=== PATIENT | male | born 1945 | race Caucasian/White ===

== ENCOUNTER 2021-08-30 01:03 | Day surgery (SDC) | payer MEDICARE, OTHER, SELFPAY ==
[2021-08-14 14:51] VITALS: BMI 34.9
[2021-08-30 10:17] VITALS: BP 175/75; PULSE 102; RESP 16; TEMP 37; O2SAT 96; BMI 33.1
[2021-08-30] MEDS: LACTATED RINGERS 1,000 ML 150 ML IV CONT (10:25)
--- NOTE | 2021-08-30 10:58 | WPDGICN ---
Assessment and Plan Assessment and plan (1) Positive colorectal cancer screening using Cologuard test: Code(s): R19.5 - Other fecal abnormalities Status: Acute Assessment and Plan: Patient presents for screening colonoscopy because of positive screening Cologuard test. Further recommendations will be given after endoscopy. GI Consult Note Consult date/time: 08/30/21 10:58 Reason for consult: Positive Cologuard test HPI: Gopal Hargrove is a 75 year old male presents for screening colonoscopy because of positive Cologuard test. Patient reports his current weight appetite bowel movements are normal. Patient denies abdominal pain. He has had no bleeding. Family history is noncontributory. Review of Systems Review of Systems: Review of systems noncontributory. [facility] Past Medical History Medical History (Updated 08/30/21 @ 10:59 by Santi Hallman MD) Hyperlipidemia Social History Social History Smoking status: Former smoker Alcohol intake: current Drinks per week: 21 Substance use: never Living arrangements: with family Spiritual care concerns: No Meds Home Medications and Allergies Home Medications Medication Instructions Recorded Confirmed Type hydrochlorothiazide 25 mg tablet 25 mg PO DAILY #90 tabs 10/20/20 08/30/21 Rx doxazosin 4 mg tablet See Rx Instructions .Route 12/09/20 08/30/21 Rx .COMPLEX #90 tabs atorvastatin 20 mg tablet 20 mg PO DAILY #90 tabs 12/14/20 08/30/21 Rx lisinopril 10 mg tablet 10 mg PO DAILY #90 tabs 12/21/20 08/30/21 Rx amlodipine 10 mg tablet See Rx Instructions .Route 08/04/21 08/30/21 Rx .COMPLEX #90 tabs Allergies Allergy/AdvReac Type Severity Reaction Status Date / Time Penicillins Allergy Mild rash Verified 08/30/21 10:16 Vital Signs Vital Signs - 24 hr 08/30/21 10:17 Temperature 98.6 F Pulse Rate 102 H Respiratory Rate 16 Blood Pressure 175/75 H Pulse Oximetry 96 Oxygen Delivery Room Air Exam Narrative: Physical exam reveals patient to be alert. Vital signs stable. HEENT exam is unremarkable. Patient is anicteric. Lungs are clear to auscultation and percussion. Heart is without murmur or extra sounds. Abdominal exam bowel sounds are present soft nontender with no organomegaly. Digital external rectal exam is normal.
--- NOTE | 2021-08-30 11:01 | P.PNAN_ITS ---
Anes - Initial Pre Proc Eval Procedure: Operation Date: 08/30/21 11:30 Proposed Procedures p Colonoscopy - Santi Hallman MD Date/Time: 08/30/21 11:01 Surgeon: Santi Hallman MD Pre Op Diagnosis: positive cologuard Patient Data Age: 75 Gender: M Height: 1.8 m Weight: 107.7 kg Last Vital Signs Temp 98.6 F 08/30/21 10:17 Pulse 102 H 08/30/21 10:17 Resp 16 08/30/21 10:17 BP 175/75 H 08/30/21 10:17 Pulse Ox 96 08/30/21 10:17 O2 Del Method Room Air 08/30/21 10:17 Allergies Allergy/AdvReac Type Severity Reaction Status Date / Time Penicillins Allergy Mild rash Verified 08/30/21 10:16 Home Medications Medication Instructions Recorded Confirmed Type hydrochlorothiazide 25 mg tablet 25 mg PO DAILY #90 tabs 10/20/20 08/30/21 Rx doxazosin 4 mg tablet See Rx Instructions .Route 12/09/20 08/30/21 Rx .COMPLEX #90 tabs atorvastatin 20 mg tablet 20 mg PO DAILY #90 tabs 12/14/20 08/30/21 Rx lisinopril 10 mg tablet 10 mg PO DAILY #90 tabs 12/21/20 08/30/21 Rx amlodipine 10 mg tablet See Rx Instructions .Route 08/04/21 08/30/21 Rx .COMPLEX #90 tabs Patient hx anesthesia problems: none Family hx anesthesia problems: none Results Review: All pre-operative results and documents have been reviewed as part of the pre- operative evaluation. [facility] Past Medical History Medical History (Updated 08/30/21 @ 10:59 by Santi Hallman MD) Hyperlipidemia Social History Social History Smoking status: Former smoker Alcohol intake: current Drinks per week: 21 Substance use: never Living arrangements: with family Spiritual care concerns: No Anes - Eval Final PreProcedure Day of Procedure 08/30/21 11:01 Patient weight: obese Heart: regular rate and rhythm Lungs: clear to auscultation Airway: Mallampati scale class III Neurological: alert and oriented Last oral intake: >/= 8 hours ASA classification: III Emergent: no Anesthetic plan: proceed Anesthesia type and monitoring: general GIVS and standard monitoring Results Review: All pre-operative results and documents have been reviewed as part of the pre- operative evaluation. Informed Consent: The patient's anesthetic plan and its attendant risks and benefits were discussed with the patient/family/POA. Questions were solicited and answers provided to the satisfaction of the patient/family/POA.
[2021-08-30 11:49] VITALS: BP 115/56; PULSE 76; RESP 17; O2SAT 98
[2021-08-30] MEDS: SIMETHICONE ORAL SUSPENSION 20 MG/0.3 ML 30 ML BOTTLE 0.6 ML IRRIGATION (11:49)
[2021-08-30 11:59] VITALS: BP 125/69; PULSE 77; RESP 20; O2SAT 95
[2021-08-30 12:09] VITALS: BP 144/68; PULSE 77; RESP 16; O2SAT 96
== END 2021-08-30 12:29 | disposition home or self-care (01) ==
PROVIDERS: PCP Internal Medicine; Visit Provider Internal Medicine Gastroenterology
PROC: 0DJD8ZZ Inspection of Lower Intestinal Tract, Via Natural or Artificial Opening Endoscopic (ICD-10-PCS; CPT 45378; principal; 2021-08-30 11:30)
DX: R19.5 Other fecal abnormalities (principal); D12.5 Benign neoplasm of sigmoid colon; D12.0 Benign neoplasm of cecum; K57.30 Diverticulosis of large intestine without perforation or abscess without bleeding; K64.8 Other hemorrhoids; E78.5 Hyperlipidemia, unspecified; Z87.891 Personal history of nicotine dependence; E66.9 Obesity, unspecified; Z68.33 Body mass index [BMI] 33.0-33.9, adult
CPT/HCPCS: 45385; 88305; J2001; J2704; J7120

== ENCOUNTER 2022-07-20 08:22 | Outpatient (CLI) | payer MEDICARE, OTHER, SELFPAY ==
[2022-07-20 14:10] LABS: Alanine Aminotransferase 26 U/L (6-50); Albumin Level 4.4 g/dL (3.5-5.1); Alkaline Phosphatase 103 U/L (38-126); Anion Gap 8 mmol/L (8-16); Aspartate Amino Transferase 42 U/L (17-59); Bilirubin,Total 0.8 mg/dL (0.2-1.3); Blood Urea Nitrogen 11 mg/dL (9-20); Calcium 9.1 mg/dL (8.4-10.2); Carbon Dioxide 27 mmol/L (22-30); Chloride 99 mmol/L (98-107); Cholesterol 150 mg/dL (0-200); Estimated Glomerular Filt Rate > 60; Glucose 114 mg/dL (65-110); HDL Direct 39 mg/dL; Potassium 3.7 mmol/L (3.4-5.0); Sodium 134 mmol/L (137-145); Triglycerides 148 mg/dL (<150)
[2022-07-20 14:26] LABS: LDL Cholesterol Direct 88 mg/dL
[2022-07-20 14:32] LABS: Prostate Specific Antigen 0.4 ng/mL (< OR = 4.0)
[2022-07-20 14:37] LABS: Hemoglobin A1C 6.2 % (<5.7)
== END 2022-07-20 08:23 | disposition home or self-care (01) ==
LOC: ANHGOSHLAB 08:26
PROVIDERS: PCP Family Medicine; Visit Provider Family Medicine
DX: E11.9 Type 2 diabetes mellitus without complications (principal); I10 Essential (primary) hypertension; Z13.220 Encounter for screening for lipoid disorders; Z13.228 Encounter for screening for other metabolic disorders; Z12.5 Encounter for screening for malignant neoplasm of prostate
CPT/HCPCS: 36415; 80053; 80061; 83036; 84153; G0103

== ENCOUNTER 2023-01-25 07:52 | Outpatient (CLI) | payer MEDICARE, OTHER, SELFPAY | END 2023-01-25 07:53 | disposition home or self-care (01) | PROVIDERS: PCP Family Medicine; Visit Provider Family Medicine | DX: H90.3 Sensorineural hearing loss, bilateral (principal) | CPT/HCPCS: 92557; 92567 ==

== ENCOUNTER 2023-03-11 09:30 | Outpatient (RCR) | payer MEDICARE, OTHER, SELFPAY | END 2023-05-08 23:59 | disposition home or self-care (01) | LOC: ANHAUDASC 09:30 | PROVIDERS: PCP Family Medicine; Visit Provider Family Medicine | DX: Z46.1 Encounter for fitting and adjustment of hearing aid (principal) | CPT/HCPCS: 99199; V5261; V5264 ==

== ENCOUNTER 2023-07-30 08:23 | Outpatient (CLI) | payer MEDICARE, SELFPAY ==
[2023-07-30 19:40] LABS: Alanine Aminotransferase 20 U/L (6-50); Albumin Level 4.3 g/dL (3.5-5.1); Alkaline Phosphatase 85 U/L (38-126); Anion Gap 7 mmol/L (4-12); Aspartate Amino Transferase 27 U/L (17-59); Bilirubin,Total 0.8 mg/dL (0.2-1.3); Blood Urea Nitrogen 12 mg/dL (9-20); Calcium 9.6 mg/dL (8.4-10.2); Carbon Dioxide 26 mmol/L (22-30); Chloride 104 mmol/L (98-107); Cholesterol 155 mg/dL (0-200); Estimated Glomerular Filt Rate > 60; Glucose 113 mg/dL (65-110); HDL Direct 42 mg/dL; Sodium 137 mmol/L (137-145); Triglycerides 168 mg/dL (<150)
[2023-07-30 19:51] LABS: LDL Cholesterol Direct 86 mg/dL
[2023-07-30 20:10] LABS: Prostate Specific Antigen 0.3 ng/mL (< OR = 4.0)
== END 2023-07-30 08:24 | disposition home or self-care (01) ==
LOC: ANHGOSHLAB 08:25
PROVIDERS: PCP Family Medicine; Visit Provider Family Medicine
DX: Z12.5 Encounter for screening for malignant neoplasm of prostate (principal); I10 Essential (primary) hypertension; E11.9 Type 2 diabetes mellitus without complications; Z13.220 Encounter for screening for lipoid disorders; Z13.228 Encounter for screening for other metabolic disorders
CPT/HCPCS: 36415; 80053; 80061; 83036; 84153; G0103

== ENCOUNTER 2024-04-16 13:01 | Outpatient (CLI) | payer MEDICARE, SELFPAY | END 2024-04-16 13:02 | disposition home or self-care (01) | LOC: ANHAUDASC 13:01 | PROVIDERS: PCP Internal Medicine; Visit Provider Family Medicine | DX: H90.3 Sensorineural hearing loss, bilateral (principal); H93.13 Tinnitus, bilateral | CPT/HCPCS: 92557; 92567 ==

== ENCOUNTER 2024-06-29 09:32 | Outpatient (CLI) | payer MEDICARE, SELFPAY ==
--- OUTSIDE RECORDS SUMMARY | 2024-06-29 10:23 | XMS_ITS | Continuity of Care Document ---
Author Organization [facility] [place] [address] [facility] [place] [address] Phone Care Team Providers Care Weight And Test Bar Clerk Name Role Phone [facility] Unavailable Unavail able Jaquelin Woods Unavailable Unavailable Advance Directives Directive Yes / No Effective Date File Name No Information Encounters Encounter Description Practice Location Reason(s) For Visit Diagnoses Date Provider Providers Copied on Encounter [facility], [address], [place], [place], [id number], [place] tel:[phone] [facility] No Information [phone] [facility]. [address], [place], [place], [id number] , [place]. tel:[phone] Referring Provider: Miko Westfall, Replaced by [facility] [facility] [address], [place], [address]. tel:[phone] garcia Provider: Jaquelin Woods, [address] [place] [address], [address]. tel:[phone] Family History Family Member Type Diagnosis Age At Onset No Information Payers Payer name Insurance type Covered constitution party ID Authoriza tion(s) No Information Social History Type Description Quantity Date Captured Comments Sex Male Smoking Status No Information Chief Complaint And Reason For Visit No Information Reason For Referral Reason For Referral No Information History Of Present Illness Encounter Date Complaint History Of Prese nt Illness No Information Functional Status Date Functional Assessmen t No Information Instructions Date Instruction Additional Infor mation No Information Assessments Type Assessment Date No Information Patient Care Teams Name Effective Dates (start - stop) Status Members No Information
--- OUTSIDE RECORDS SUMMARY | 2024-06-29 10:23 | XMS_ITS | Clinical Summary ---
Author Organization [facility] Address [address] [place] [address] Care Team Providers Care Health Promotion Specialist Name Role Phone Unavailable Primary Care Provider Unavailabl e Encounters Date Type Department Care Team Description 06/17/2024 External Device Data [facility] Provider, Abstract 06/06/2024 External Device Data [facility] Provider, Abstract 06/05/2024 External Device Data [facility] Provider, Abstract 05/19/2024 External Device Data [facility] Provider, Abstract 04/22/2024 External Device Data [facility] Provider, Abstract 04/21/2024 External Device Data [facility] Provider, Abstract from Last 3 Months Immunizations Immunization Administration Dates Next Due (COMIRNATY)(12 YR UP) COVID- 19 VACCINE, MRNA, SPIKE PROTEIN, LNP, KWADWO(PF) 30 MCG/0.3 ML IM SUSP 12/16/2023 (SHINGRIX)(50 YRS UP) ZOSTER VACCINE RECOMBINANT, 0.5 ML, IM 05/15/2024,02/07/2024 INFLUENZA VACCINE HIGH DOSE QUADRIVALENT 65 YR UP PF IM 12/17/2022 INFLUENZA VACCINE HIGH DOSE TRIVALENT SPLIT VIRUS, (65 YR UP), 0.5ML (PF), IM 12/08/2023 Social History Tobacco Use Types Packs/Day Years Used Date Smoking Tobacco: Never Assessed Sex and Gender Information Value Date Recorded Sex Assigned at Not on file Legal Sex Male 11:19 AM CDT Gender Identity Not on file Sexual Orientation Not on file Plan of Treatment Health Maintenance Due Date Last Done Comments DTAP/TDAP/TD VACCINES (1 - Tdap) 1964 PNEUMOCOCCAL VACCINE 50+ YEA RS (1 of 1 - PCV) 1996 RSV VACCINE (60+ or ) (1 - 1-dose 75+ series) 2021 COVID-19 Vaccine (2 - season) 2024 INFLUENZA VACCINE Completed 12/08/2023, 12/17/2022 ZOSTER VACCINE Completed 05/15/2024, 02/07/2024 Insurance RX [employer] Medicare Part B RX [employer] Medicare Part D
[2024-06-29 13:43] LABS: Basophils Percent Auto 0.4 % (0.2-1.2); Eosinophils Absolute Auto 0.1 K/mm3 (0-0.3); Eosinophils Percent Auto 0.7 % (0-4.4); Hematocrit 42.8 % (42.0-52.0); Hemoglobin 14.4 g/dL (14.0-18.0); Immature Granulocyte Absolute 0.02 K/mm3 (0.00-0.031); Immature Granulocyte Percent A 0.3 % (0-0.5); Lymphocytes Absolute Auto 1.81 K/mm3 (0.9-3.2); Lymphocytes Percent Auto 25.2 % (18.3-44.2); Mean Corpuscular HGB Conc 33.6 g/dl (32-36); Mean Corpuscular Hemoglobin 30.1 pg (26-34); Mean Corpuscular Volume 89.5 fl (80-100); Mean Platelet Volume 9.3 fl (7.4-10.4); Monocytes Absolute Auto 0.6 K/mm3 (0.1-0.6); Monocytes Percent Auto 8.2 % (2.6-8.5); Neutrophils Absolute Auto 4.7 K/mm3 (1.3-6.7); Neutrophils Percent Auto 65.2 % (45.5-73.1); Platelet Count Result 201 k/mm3 (150-375); Red Blood Count 4.78 M/mm3 (4.6-6.20); Red Cell Distribution Width 12.8 % (11.5-14.5); White Blood Count 7.2 K/mm3 (4.5-10.0)
[2024-06-29 14:03] LABS: Alanine Aminotransferase 24 U/L (6-50); Albumin Level 4.6 g/dL (3.5-5.1); Alkaline Phosphatase 119 U/L (38-126); Anion Gap 11 mmol/L (4-12); Aspartate Amino Transferase 40 U/L (17-59); Bilirubin,Total 0.6 mg/dL (0.2-1.3); Blood Urea Nitrogen 11 mg/dL (9-20); Calcium 9.6 mg/dL (8.4-10.2); Carbon Dioxide 26 mmol/L (22-30); Chloride 96 mmol/L (98-107); Cholesterol 150 mg/dL (0-200); Estimated Glomerular Filt Rate > 60; Glucose 107 mg/dL (65-110); HDL Direct 47 mg/dL; Potassium 3.8 mmol/L (3.4-5.0); Sodium 133 mmol/L (137-145); Triglycerides 138 mg/dL (<150)
[2024-06-29 14:14] LABS: LDL Cholesterol Direct 67 mg/dL
[2024-06-29 14:57] LABS: Hemoglobin A1C 5.9 % (<5.7)
[2024-07-03 11:58] LABS: Apolipoprotein B 79 mg/dL
== END 2024-06-29 09:33 | disposition home or self-care (01) ==
LOC: ANHGOSHLAB 09:33
PROVIDERS: PCP Internal Medicine; Visit Provider Internal Medicine
DX: E78.5 Hyperlipidemia, unspecified (principal); R73.9 Hyperglycemia, unspecified; I10 Essential (primary) hypertension
CPT/HCPCS: 36415; 80053; 80061; 82172; 83036; 85025

== ENCOUNTER 2024-08-14 08:20 | Outpatient (CLI) | payer MEDICARE, SELFPAY ==
--- OUTSIDE RECORDS SUMMARY | 2024-08-14 08:29 | XMS_ITS | Clinical Summary ---
Author Organization [facility] Address [address] [place] [address] Care Team Providers Care Plate Mill Hand Name Role Phone Unavailable Primary Care Provider [...] 75+ series) 2021 COVID-19 Vaccine (2 - 2023- season) 2024 INFLUENZA VACCINE Completed 12/08/2023, 12/17/2022 ZOSTER VACCINE Completed 05/15/2024, 02/07/2024 Insurance RX [employer] Medicare Part B RX [employer] Medicare Part D
[2024-08-14 12:36] LABS: Anion Gap 11 mmol/L (4-12); Blood Urea Nitrogen 16 mg/dL (9-20); Calcium 9.4 mg/dL (8.4-10.2); Carbon Dioxide 24 mmol/L (22-30); Chloride 100 mmol/L (98-107); Estimated Glomerular Filt Rate > 60; Glucose 101 mg/dL (65-110); Potassium 4.2 mmol/L (3.4-5.0); Sodium 135 mmol/L (137-145)
== END 2024-08-14 08:21 | disposition home or self-care (01) ==
LOC: ANHGOSHLAB 08:22
PROVIDERS: PCP Internal Medicine; Visit Provider Internal Medicine
DX: E87.1 Hypo-osmolality and hyponatremia (principal)
CPT/HCPCS: 36415; 80048

== ENCOUNTER 2025-03-11 08:26 | Outpatient (CLI) | payer MEDICARE, SELFPAY ==
[2025-03-11 18:55] LABS: Anion Gap 7 mmol/L (4-12); Blood Urea Nitrogen 14 mg/dL (9-20); Calcium 9.6 mg/dL (8.4-10.2); Carbon Dioxide 27 mmol/L (22-30); Chloride 99 mmol/L (98-107); Estimated Glomerular Filt Rate > 60; Glucose 118 mg/dL (65-110); Potassium 4.2 mmol/L (3.4-5.0); Sodium 133 mmol/L (137-145)
[2025-03-11 20:31] LABS: Hemoglobin A1C 6.4 % (<5.7)
== END 2025-03-11 08:27 | disposition home or self-care (01) ==
PROVIDERS: PCP Internal Medicine; Visit Provider Internal Medicine
DX: R73.9 Hyperglycemia, unspecified (principal); I10 Essential (primary) hypertension; E87.1 Hypo-osmolality and hyponatremia
CPT/HCPCS: 36415; 80048; 83036